=== PATIENT | female | born 1985 | race Caucasian/White ===

== ENCOUNTER 2020-03-27 08:13 | Outpatient (REF) | payer OTHER, SELFPAY | END 2020-03-27 08:14 | disposition home or self-care (01) | LOC: HO.HMGCLDS 08:13 | PROVIDERS: PCP Internal Medicine; Visit Provider Internal Medicine | DX: Z20.828 Contact with and (suspected) exposure to other viral communicable diseases (principal) | CPT/HCPCS: 87635 ==

== ENCOUNTER 2020-05-17 17:47 | Outpatient (REF) | payer OTHER, SELFPAY ==
[2020-05-17 18:42] LABS: COVID-19 Test Negative (Negative); IDNOW Serial# 55D5AD1C
== END 2020-05-17 17:48 | disposition home or self-care (01) ==
LOC: HO.EMPCOV 17:47
PROVIDERS: Visit Provider Internal Medicine
DX: Z20.828 Contact with and (suspected) exposure to other viral communicable diseases (principal)
CPT/HCPCS: 87635; C9803

== ENCOUNTER 2020-06-11 10:07 | Outpatient (REF) | payer OTHER, SELFPAY ==
[2020-06-11 10:38] LABS: COVID-19 Test Negative (Negative)
== END 2020-06-11 10:08 | disposition home or self-care (01) ==
LOC: HO.EMPCOV 10:07
PROVIDERS: Visit Provider Internal Medicine
DX: Z20.828 Contact with and (suspected) exposure to other viral communicable diseases (principal)
CPT/HCPCS: 87635

== ENCOUNTER 2020-06-12 07:55 | Outpatient (REF) | payer OTHER, SELFPAY ==
[2020-06-12 08:19] LABS: COVID-19 Test Negative (Negative)
== END 2020-06-12 07:56 | disposition home or self-care (01) ==
LOC: HO.EMPCOV 07:55
PROVIDERS: PCP Internal Medicine; Visit Provider Internal Medicine
DX: Z20.828 Contact with and (suspected) exposure to other viral communicable diseases (principal)
CPT/HCPCS: 87635; C9803

== ENCOUNTER 2020-07-05 10:24 | Outpatient (REF) | payer OTHER, SELFPAY ==
[2020-07-05 10:42] LABS: COVID-19 Test Negative (Negative)
== END 2020-07-05 10:25 | disposition home or self-care (01) ==
LOC: HO.EMPCOV 10:24
PROVIDERS: Visit Provider Internal Medicine
DX: Z20.822 Contact with and (suspected) exposure to COVID-19 (principal)
CPT/HCPCS: 36415; 87635; C9803

== ENCOUNTER 2022-07-23 13:00 | Outpatient (RCR) | payer OTHER, SELFPAY | END 2022-10-17 15:54 | disposition home or self-care (01) | LOC: HO.PT 13:00 | PROVIDERS: Visit Provider Obstetrics & Gynecology | DX: Z39.2 Encounter for routine postpartum follow-up (principal) | CPT/HCPCS: 97110; 97112; 97140; 97162 ==